=== PATIENT | female | born 1985 | race Caucasian/White ===

== ENCOUNTER 2020-02-12 00:38 | Inpatient (IN) | payer OTHER ==
[~2020-02-12] VITALS: Ht 157.5 cm; Wt 59.5 kg
[2020-02-12] MEDS ORDERED: ONDANSETRON 2MG/ML, 2ML ONE (01:19)
[2020-02-12] MEDS ORDERED: MORPHINE SULFATE 4 MG/ML, 1ML ONE ×2 (01:19→05:00)
[2020-02-12] MEDS ORDERED: SODIUM CHLORIDE FLUSH 10ML SYR IVF ONE (01:30)
[2020-02-12] MEDS ORDERED: ONDANSETRON 2MG/ML, 2ML IVPush ONE (01:30)
[2020-02-12] MEDS ORDERED: SODIUM CHLORIDE 0.9% 1,000ML IVBOLUS ONE ×2 (01:30→03:00)
[2020-02-12] MEDS: MORPHINE SULFATE 4 MG/ML, 1ML IVPush PRN ×2 (01:32→05:01)
[2020-02-12] MEDS: PLEASE ENTER ALLERGIES MC SCH ×2 (01:33→09:30)
[2020-02-12 01:46] LABS: BASOPHILS # (AUTO) 0.04 x10^3/uL (0-0.1); BASOPHILS % (AUTO) 1 % (0-1); EOSINOPHILS # (AUTO) 0.07 x10^3/uL (0-0.4); EOSINOPHILS % (AUTO) 1 % (1-7); LYMPHOCYTES # (AUTO) 2.65 x10^3/uL (1-3.4); LYMPHOCYTES % (AUTO) 35 % (22-44); MD NO; MEAN CORPUSCULAR HEMOGLOBIN 32.3 pg (27.0-34.8); MEAN CORPUSCULAR HGB CONC 33.4 g/dL (32.4-35.8); MEAN CORPUSCULAR VOLUME 96.5 fL (80-100); MEAN PLATELET VOLUME 8.3 fL (7.4-10.4); MONOCYTES # (AUTO) 0.66 x10^3/uL (0.2-0.8); MONOCYTES % (AUTO) 9 % (2-9); NEUTROPHILS % (AUTO) 55 % (42-75); PLATELET COUNT 272 x10^3/uL (130-400); RED BLOOD COUNT 4.27 x10^6/uL (3.82-5.3); RED CELL DISTRIBUTION WIDTH 13.2 % (9.6-15.2)
--- NOTE | 2020-02-12 01:51 | NUR ---
PT PRESENTS C/O RLQ ABD PAIN WITH N/V. STATES SHE HAS HAD SIMILAR EPISODES AND WONDERS IF IT MAY BE HER GALLBLADDER. IV ACCESS OBTAINED AND LABS SENT. PT MEDICATED PER JAN. PT AWARE OF UA. CALL LIGHT IN REACH.
[2020-02-12 01:57] LABS: ALANINE AMINOTRANSFERASE 304 U/L (12-78); ALBUMIN 3.3 g/dL (3.4-5.0); ANION GAP 6 mmol/L (5-15); CALCIUM 8.4 mg/dL (8.5-10.1); CHLORIDE 109 mmol/L (98-107)
[2020-02-12 02:02] LABS: ALKALINE PHOSPHATASE 74 U/L (45-117); CREATININE 0.78 mg/dL (0.55-1.02); TOTAL PROTEIN 7.1 g/dL (6.4-8.2)
--- NOTE | 2020-02-12 02:02 | NUR ---
CT PENDING LAB/CREATINE/BETA.
--- NOTE | 2020-02-12 02:20 | NUR ---
Pt in CT via edith
[2020-02-12] MEDS ORDERED: OMNIPAQUE 350 MG/ML, 100ML BOTTLE ONE (02:25)
--- NOTE | 2020-02-12 02:50 | NUR ---
PT BACK FROM CT. STATES PAIN CONTROLLED AT THIS TIME AFTER MEDS. VSS. DENIES NEEDS. CALL LIGHT IN REACH.
--- NOTE | 2020-02-12 03:13 | NUR ---
DR RICHARDS AT BEDSIDE TO EVAL FOR ADMISSION.
--- NOTE | 2020-02-12 03:40 | NUR ---
PT IN US VIA [facility]
--- NOTE | 2020-02-12 04:05 | NUR ---
PT RETURNED FROM US. DENIES NEEDS. VSS. IV FLUID INFUSING. AWAITING ADMISSION. CALL LIGHT IN REACH.
[2020-02-12] MEDS ORDERED: ONDANSETRON 2MG/ML, 2ML IVPush PRN (04:30)
--- NOTE | 2020-02-12 05:04 | NUR ---
Pt states pain returning. Medicated per MAR before transfer to floor. VSS.
[2020-02-12 05:19] VITALS: BP 150/91
[2020-02-12] MEDS: SODIUM CHLORIDE 0.9% 1,000 ML IV SCH ×3 (06:01→23:20)
[2020-02-12 06:10] LABS: MICROSCOPIC NOT IND
[2020-02-12 06:12] LABS: CULTURE INDICATED? NO
[2020-02-12] MEDS ORDERED: LEVO1TAB17 BC (06:13)
[2020-02-12 06:25] VITALS: BP 132/69
[2020-02-12] MEDS ORDERED: MORPHINE SULFATE 4 MG/ML, 1ML IVPush PRN (11:30)
[2020-02-12 13:00] VITALS: BP 152/98
[2020-02-12] MEDS ORDERED: SINCALIDE (KINEVAC) 5 MCG ONE (14:06)
[2020-02-12 19:55] VITALS: BP 155/90
[2020-02-13 01:13] VITALS: BP 135/91
[2020-02-13] MEDS: DIPHENHYDRAMINE 50 MG CAPSULE PO PRN (02:26)
[2020-02-13 06:17] LABS: BASOPHILS # (AUTO) 0.03 x10^3/uL (0-0.1); BASOPHILS % (AUTO) 0 % (0-1); EOSINOPHILS # (AUTO) 0.09 x10^3/uL (0-0.4); EOSINOPHILS % (AUTO) 1 % (1-7); LYMPHOCYTES # (AUTO) 2.65 x10^3/uL (1-3.4); LYMPHOCYTES % (AUTO) 41 % (22-44); MD NO; MEAN CORPUSCULAR HEMOGLOBIN 32.3 pg (27.0-34.8); MEAN CORPUSCULAR HGB CONC 33.8 g/dL (32.4-35.8); MEAN CORPUSCULAR VOLUME 95.7 fL (80-100); MONOCYTES # (AUTO) 0.32 x10^3/uL (0.2-0.8); MONOCYTES % (AUTO) 5 % (2-9); NEUTROPHILS # (AUTO) 3.35 x10^3/uL (1.8-6.8); NEUTROPHILS % (AUTO) 52 % (42-75); PLATELET COUNT 239 x10^3/uL (130-400); RED BLOOD COUNT 4.09 x10^6/uL (3.82-5.3)
[2020-02-13 06:23] LABS: ALANINE AMINOTRANSFERASE 289 U/L (12-78); ALBUMIN 3.1 g/dL (3.4-5.0); ANION GAP 9 mmol/L (5-15); BILIRUBIN, DIRECT 0.2 mg/dL (0.1-0.2); CALCIUM 8.5 mg/dL (8.5-10.1); CHLORIDE 108 mmol/L (98-107)
[2020-02-13 06:25] LABS: ALKALINE PHOSPHATASE 88 U/L (45-117); BILIRUBIN,INDIRECT 0.6 mg/dL (0.0-2.0); BILIRUBIN,TOTAL 0.8 mg/dL (0.2-1.0); CREATININE 0.64 mg/dL (0.55-1.02); TOTAL PROTEIN 6.6 g/dL (6.4-8.2)
[2020-02-13] MEDS: SODIUM CHLORIDE 0.9% 1,000 ML IV SCH ×2 (06:45→16:58)
[2020-02-13 06:48] VITALS: BP 134/89
[2020-02-13] MEDS: LEVONORGESTREL PO SCH (08:13)
[2020-02-13] MEDS: ETHINYL ESTRADIOL 0.02 MG PO SCH (08:13)
[2020-02-13] MEDS ORDERED: LEVONORGESTREL PO SCH (09:00)
[2020-02-13] MEDS ORDERED: ETHINYL ESTRADIOL 0.02 MG PO SCH (09:00)
[2020-02-13 13:58] VITALS: BP 149/92
[2020-02-13 18:23] VITALS: BP 131/85
[2020-02-14] MEDS: SODIUM CHLORIDE 0.9% 1,000 ML IV SCH (01:19)
[2020-02-14 01:27] VITALS: BP 150/97
[2020-02-14] MEDS: DIPHENHYDRAMINE 50 MG CAPSULE PO PRN (01:27)
[2020-02-14 02:21] VITALS: BP 144/97
[2020-02-14 05:24] LABS: ALBUMIN 3.1 g/dL (3.4-5.0); CALCIUM 8.5 mg/dL (8.5-10.1); CHLORIDE 110 mmol/L (98-107)
[2020-02-14 05:29] LABS: ALANINE AMINOTRANSFERASE 192 U/L (12-78); ALKALINE PHOSPHATASE 82 U/L (45-117); ANION GAP 6 mmol/L (5-15); BILIRUBIN,TOTAL 0.6 mg/dL (0.2-1.0); CREATININE 0.74 mg/dL (0.55-1.02); TOTAL PROTEIN 6.7 g/dL (6.4-8.2)
[2020-02-14 07:32] VITALS: BP 137/89
[2020-02-14] MEDS: ETHINYL ESTRADIOL 0.02 MG PO SCH (08:41)
[2020-02-14] MEDS: LEVONORGESTREL PO SCH (08:41)
[2020-02-14 14:05] VITALS: BP 135/92
[2020-02-14 19:58] VITALS: BP 137/85
[2020-02-15 01:34] VITALS: BP 135/90
[2020-02-15 06:36] VITALS: BP 136/88
[2020-02-15] MEDS: LEVONORGESTREL PO SCH (09:00)
[2020-02-15] MEDS: ETHINYL ESTRADIOL 0.02 MG PO SCH (09:00)
== END 2020-02-15 11:03 | disposition home or self-care (01) | DRG 440 ==
LOC: ED 03:20 → EDIP 03:59 → 3N 05:13
PROVIDERS: ADMIT Internal Medicine; ATTEND Internal Medicine
DX: K85.10 Biliary acute pancreatitis without necrosis or infection (principal); G89.29 Other chronic pain; K80.20 Calculus of gallbladder without cholecystitis without obstruction; F10.10 Alcohol abuse, uncomplicated; K85.20 Alcohol induced acute pancreatitis without necrosis or infection
CPT/HCPCS: 36415; 74177; 76700; 78227; 80048; 80053; 80076; 80307; 81003; 82977; 83690; 83735; 84100; 84703; 85025; 96361; 96374; G0378; J2405; Q9967; A9537; J2270; J2805; J7030

== ENCOUNTER → 2020-05-17 | Outpatient (CLI) | payer OTHER ==
[~2020-05-17] MED LIST: LEVO1TAB17 BC
== END | disposition home or self-care (01) ==
LOC: STAR 09:50
PROVIDERS: ATTEND Surgery
DX: Z01.818 Encounter for other preprocedural examination (principal); Z11.59 Encounter for screening for other viral diseases
CPT/HCPCS: 36415; 80053; 83690; 84703; 85025; 85610; 87635

== ENCOUNTER 2020-05-20 06:42 | Day surgery (SDC) | payer OTHER ==
[2020-05-17 10:43] LABS: BASOPHILS # (AUTO) 0.01 x10^3/uL (0-0.1); BASOPHILS % (AUTO) 0 % (0-1); EOSINOPHILS # (AUTO) 0.09 x10^3/uL (0-0.4); EOSINOPHILS % (AUTO) 1 % (1-7); LYMPHOCYTES # (AUTO) 2.65 x10^3/uL (1-3.4); LYMPHOCYTES % (AUTO) 30 % (22-44); MD NO; MEAN CORPUSCULAR HEMOGLOBIN 32.2 pg (27.0-34.8); MEAN CORPUSCULAR VOLUME 94.7 fL (80-100); MEAN PLATELET VOLUME 8.5 fL (7.4-10.4); MONOCYTES # (AUTO) 0.45 x10^3/uL (0.2-0.8); MONOCYTES % (AUTO) 5 % (2-9); NEUTROPHILS # (AUTO) 5.72 x10^3/uL (1.8-6.8); NEUTROPHILS % (AUTO) 64 % (42-75); PLATELET COUNT 293 x10^3/uL (130-400); RED BLOOD COUNT 4.75 x10^6/uL (3.82-5.3); RED CELL DISTRIBUTION WIDTH 12.1 % (9.6-15.2)
[2020-05-17 10:50] LABS: INTERNATIONAL NORMALIZED RATIO 0.93 (0.93-1.1); PROTHROMBIN TIME 9.9 Seconds (9.6-11.5)
[2020-05-17 10:53] LABS: ALANINE AMINOTRANSFERASE 47 U/L (12-78); ALBUMIN 3.9 g/dL (3.4-5.0); ANION GAP 6 mmol/L (5-15); CALCIUM 9.2 mg/dL (8.5-10.1); CHLORIDE 108 mmol/L (98-107); CREATININE 0.82 mg/dL (0.55-1.02)
[2020-05-17 10:58] LABS: ALKALINE PHOSPHATASE 53 U/L (45-117); BILIRUBIN,TOTAL 0.5 mg/dL (0.2-1.0); TOTAL PROTEIN 7.9 g/dL (6.4-8.2)
[~2020-05-20] VITALS: Ht 157.5 cm; Wt 59.3 kg
[2020-05-20] MEDS ORDERED: CHLORHEXIDINE 15 ML UDC ONE (07:13)
[2020-05-20] MEDS ORDERED: LACTATED RINGERS 1,000 ML IV SCH (07:19)
[2020-05-20] MEDS ORDERED: CHLORHEXIDINE 15 ML UDC MM ONE (07:30)
[2020-05-20 07:31] LABS: HCG UR SG 1.023 (1.003-1.030)
[2020-05-20 07:53] VITALS: BP 138/89
[2020-05-20] MEDS ORDERED: BUPIVACAINE/PF-EPI 0.5% 1:200K ONE (08:17)
[2020-05-20] MEDS ORDERED: FENTANYL PF 250 MCG/5ML ONE (08:36)
[2020-05-20] MEDS ORDERED: MIDAZOLAM 1 MG/ML, 2ML ONE (08:36)
[2020-05-20] MEDS ORDERED: ACETAMINOPHEN 325 MG TABLET PO PRN (09:00)
[2020-05-20] MEDS ORDERED: OXYcodone 5 MG/5 ML ORAL.SOL UDC PO PRN (09:00)
[2020-05-20] MEDS ORDERED: PROMETHAZINE 25 MG SUPP PR PRN (09:00)
[2020-05-20] MEDS ORDERED: DIAZEPAM 5 MG/ML, 2ML IVPush PRN (09:00)
[2020-05-20] MEDS ORDERED: PROMETHAZINE 25 MG/ML, 1ML IVPush PRN (09:00)
[2020-05-20] MEDS ORDERED: ONDANSETRON 2MG/ML, 2ML IVPush PRN (09:00)
[2020-05-20] MEDS ORDERED: LORazepam 2 MG/ML, 1ML IVPush PRN (09:00)
[2020-05-20] MEDS ORDERED: MEPERIDINE/PF 25MG/0.5ML IVPush PRN (09:00)
[2020-05-20] MEDS ORDERED: HYDROmorphone 1 MG/ML, 1ML INJ IVPush PRN (09:00)
[2020-05-20] MEDS ORDERED: ROCURONIUM 10MG/ML,5ML ONE (09:11)
[2020-05-20] MEDS ORDERED: ONDANSETRON 2MG/ML, 2ML ONE (09:11)
[2020-05-20] MEDS ORDERED: CEFAZOLIN 1,000 MG ONE (09:11)
[2020-05-20] MEDS ORDERED: SUCCINYLCHOLINE 20 MG/ML, 10ML ONE (09:11)
[2020-05-20] MEDS ORDERED: DEXAMETHASONE 4 MG/ML, 1ML ONE (09:11)
[2020-05-20] MEDS ORDERED: PROPOFOL 10 MG/ML, 20ML ONE (09:11)
[2020-05-20] MEDS ORDERED: GLYCOPYRROLATE 0.2MG/1ML, 5ML ONE (09:11)
[2020-05-20] MEDS ORDERED: NEOSTIGMINE 1 MG/ML, 10ML ONE (09:11)
[2020-05-20] MEDS ORDERED: ACETAMINOPHEN 650 MG/20.3 ML UDC ONE (10:01)
[2020-05-20] MEDS ORDERED: FENTANYL PF 100 MCG/2ML ONE (10:02)
[2020-05-20] MEDS ORDERED: OXYcodone 5 MG/5 ML ORAL.SOL UDC ONE (10:02)
[2020-05-20] MEDS: FENTANYL PF 100 MCG/2ML IV PRN ×3 (10:06→10:27)
[2020-05-20] MEDS ORDERED: HYDROmorphone 1 MG/ML, 1ML INJ ONE (10:22)
[2020-05-20] MEDS ORDERED: LORazepam 2 MG/ML, 1ML ONE (10:23)
[2020-05-20] MEDS ORDERED: KETOROLAC 30 MG/1 ML IVPush SCH (12:30)
[2020-05-20] MEDS ORDERED: KETOROLAC 30 MG/1 ML ONE (12:32)
== END 2020-05-20 13:40 | disposition home or self-care (01) ==
LOC: OUT 06:42
PROVIDERS: ATTEND Surgery
DX: K80.10 Calculus of gallbladder with chronic cholecystitis without obstruction (principal); Z79.899 Other long term (current) drug therapy
CPT/HCPCS: 47562; 81025; 88304; C1757; J0690; J1100; J1170; J1885; J2060; J2250; J2405; J2704; J2710; J3010; J7120; 36415; 80053; 83690; 84703; 85025; 85610; 87635; J0330